=== PATIENT | female | born 1960 | race Caucasian/White ===

== ENCOUNTER → 2016-09-21 | Outpatient (CLI) | payer OTHER ==
--- NOTE | 2016-09-21 15:56 | DIAGNOSTIC IMAGING REPORT ---
CERVICAL SPINE 2 OR 3 VIEWS CLINICAL HISTORY: Neck pain. COMPARISON STUDY: No previous studies for comparison. FINDINGS: Visualization of the cervical spine is adequate. Vertebral body heights are maintained. There is mild to moderate disc space narrowing at C5-C6 and C6-C7 with mild multilevel facet arthrosis. IMPRESSION: 1. No cervical spine fracture. 2. Mild to moderate degenerative disc disease at C5-C6 and C6-C7 with moderate multilevel facet arthrosis. Electronically signed by: Augustine Garcia M.D. 09/21/2016 3:54 PM Dictated Date/Time: 09/21/2016 3:53 PM
[2016-09-22 06:46] LABS: ESTIMATED AVERAGE GLUCOSE 103 mg/dl; HA1C FLAG Normal (Normal)
== END | disposition home or self-care (01) ==
LOC: C.LABBC 15:05
PROVIDERS: ATTEND Family Medicine
DX: M50.322 Other cervical disc degeneration at C5-C6 level (principal); M50.323 Other cervical disc degeneration at C6-C7 level; M85.80 Other specified disorders of bone density and structure, unspecified site; R73.01 Impaired fasting glucose; E03.9 Hypothyroidism, unspecified

== ENCOUNTER → 2016-09-21 | Outpatient (CLI) | payer OTHER | END | disposition home or self-care (01) | LOC: C.PAPS 09:46 | PROVIDERS: ATTEND Family Medicine | DX: Z12.4 Encounter for screening for malignant neoplasm of cervix (principal) ==

== ENCOUNTER → 2016-09-30 | Outpatient (CLI) | payer OTHER ==
[2016-09-30 20:16] LABS: INFLUENZA A PCR Neg for Influ A (NEG); INFLUENZA B PCR Neg for Influ B (NEG)
== END | disposition home or self-care (01) ==
LOC: C.LAB 17:33
PROVIDERS: ATTEND Family Medicine
DX: R09.89 Other specified symptoms and signs involving the circulatory and respiratory systems (principal); Z11.59 Encounter for screening for other viral diseases

== ENCOUNTER → 2016-09-30 | Outpatient (CLI) | payer OTHER ==
--- NOTE | 2016-09-30 16:46 | DIAGNOSTIC IMAGING REPORT ---
CHEST 2 VIEWS ROUTINE CLINICAL HISTORY: Persistent cough and congestion COMPARISON STUDY: No previous studies for comparison. FINDINGS: The cardiac and mediastinal contours are normal. There is no evidence of focal pulmonary consolidation. There is no evidence of failure. No pleural effusions are visualized.[ IMPRESSION: No active disease in the chest. Electronically signed by: Jus Benitez M.D. 09/30/2016 4:45 PM Dictated Date/Time: 09/30/2016 4:45 PM
== END | disposition home or self-care (01) ==
LOC: C.RADBC 16:33
PROVIDERS: ATTEND Family Medicine
DX: R09.89 Other specified symptoms and signs involving the circulatory and respiratory systems (principal)

== ENCOUNTER → 2017-02-22 | Outpatient (CLI) | payer OTHER ==
[2017-02-22 14:48] LABS: ALT/SGPT 20 U/L (12-78); BLOOD UREA NITROGEN 20 mg/dl (7-18); BUN/CREATININE RATIO 21.7 (10-20); CARBON DIOXIDE 29 mmol/L (21-32); CHLORIDE 105 mmol/L (98-107); CREATININE 0.93 mg/dl (0.60-1.20); GLUCOSE 66 mg/dl (70-99); POTASSIUM 4.2 mmol/L (3.5-5.1); SODIUM 141 mmol/L (136-145)
[2017-02-22 14:58] LABS: ALB/GLOB RATIO 1.1 (0.9-2); ALKALINE PHOSPHATASE 53 U/L (45-117); AST/SGOT 19 U/L (15-37); THYROID STIMULATING HORMONE 0.168 uIu/ml (0.300-4.500)
== END | disposition home or self-care (01) ==
LOC: C.LABBC 09:35
PROVIDERS: ATTEND Family Medicine
DX: E55.9 Vitamin D deficiency, unspecified (principal); E03.9 Hypothyroidism, unspecified; M85.80 Other specified disorders of bone density and structure, unspecified site

== ENCOUNTER → 2017-03-15 | Outpatient (CLI) | payer OTHER ==
--- NOTE | 2017-03-15 14:42 | DIAGNOSTIC IMAGING REPORT ---
CERVICAL SPINE 2 OR 3 VIEWS CLINICAL HISTORY: 56 years-old Female presenting with trapezius muscle spasm, whiplash injury. TECHNIQUE: Frontal, lateral, and open-mouth odontoid views of the cervical spine were obtained. COMPARISON: None. FINDINGS: The C7 vertebral body is fully visualized. Vertebral bodies maintain normal height and alignment. Minimal multilevel degenerative changes with suggestion of suggestion of minimal intervertebral disc height loss as a result. 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 No predental interval widening. The lateral masses of C1 articulate normally with C2. Prevertebral soft tissues normal. No radiographic evidence of fracture or subluxation. Lung apices clear. IMPRESSION: 1. No radiographic evidence of acute fracture or subluxation. Electronically signed by: Nicholas Bashir M.D. 03/15/2017 2:41 PM Dictated Date/Time: 03/15/2017 2:37 PM
== END | disposition home or self-care (01) ==
LOC: C.RADBC 14:14
PROVIDERS: ATTEND Physician Assistant Medical
DX: M62.838 Other muscle spasm (principal); S13.4XXA Sprain of ligaments of cervical spine, initial encounter; X58.XXXA Exposure to other specified factors, initial encounter

== ENCOUNTER → 2017-03-25 | Outpatient (CLI) | payer OTHER | END | disposition home or self-care (01) | LOC: C.LABBC 12:53 | PROVIDERS: ATTEND Internal Medicine | DX: E03.9 Hypothyroidism, unspecified (principal) ==

== ENCOUNTER → 2017-04-29 | Outpatient (CLI) | payer OTHER | END | disposition home or self-care (01) | LOC: C.LABBC 11:26 | PROVIDERS: ATTEND Physician Assistant Medical | DX: E03.9 Hypothyroidism, unspecified (principal) ==

== ENCOUNTER → 2017-10-12 | Outpatient (CLI) | payer OTHER | END | disposition home or self-care (01) | LOC: C.LABSPEC 17:30 | PROVIDERS: ATTEND Physician Assistant | DX: Z01.419 Encounter for gynecological examination (general) (routine) without abnormal findings (principal); R10.2 Pelvic and perineal pain ==

== ENCOUNTER → 2017-12-14 | Outpatient (CLI) | payer OTHER ==
--- NOTE | 2017-12-14 10:56 | DIAGNOSTIC IMAGING REPORT ---
R HAND MIN 3 VIEWS ROUTINE, L HAND MIN 3 VIEWS ROUTINE CLINICAL HISTORY: BILATERAL HAND PAIN COMPARISON STUDY: None. FINDINGS: No fracture or dislocation within the right or left hand. Soft tissues are unremarkable. No erosions identified. Bone mineralization is intact. Moderate to severe cartilage space narrowing within the DIP joints of the bilateral hands with small marginal osteophytes. This is most pronounced within the index fingers. There is also moderate right and mild left osteoarthritis within the first carpometacarpal joints and interphalangeal joints of the thumbs. IMPRESSION: 1. Bilateral hand osteoarthritis as described above, right greater than left. 2. No fractures. Electronically signed by: Stone Walker M.D. 12/14/2017 10:55 AM Dictated Date/Time: 12/14/2017 10:53 AM
== END | disposition home or self-care (01) ==
LOC: C.RADBC 10:27
PROVIDERS: ATTEND Family Medicine Adult Medicine
DX: M19.041 Primary osteoarthritis, right hand (principal); M19.042 Primary osteoarthritis, left hand

== ENCOUNTER → 2018-01-06 | Outpatient (CLI) | payer OTHER ==
--- NOTE | 2018-01-07 07:49 | MAMMOGRAPHY REPORT ---
BILATERAL DIGITAL SCREENING MAMMOGRAM TOMOSYNTHESIS WITH CAD: 01/06/2018 CLINICAL HISTORY: Routine screening. TECHNIQUE: Breast tomosynthesis in addition to standard 2D mammography was performed. Current study was also evaluated with a Computer Aided Detection (CAD) system. COMPARISON: Comparison is made to exams dated: 12/31/2016 mammogram, 11/28/2015 mammogram, 11/22/2015 ma mmogram, 11/19/2014 mammogram, 11/17/2013 mammogram, and 11/14/2012 mammogram - [facility] nter. BREAST COMPOSITION: The tissue of both breasts is heterogeneously dense, which may obscure small mas ses. FINDINGS: No suspicious masses, calcifications, or areas of architectural distortion are noted in ei ther breast. There has been no significant interval change compared to prior exams. Bilateral benig n-appearing calcifications are not significantly changed. A biopsy marker clip is again noted in the left upper outer quadrant. IMPRESSION: ACR BI-RADS CATEGORY 2: BENIGN There is no mammographic evidence of malignancy. A 1 year screening mammogram is recommended. The pa tient will receive written notification of the results. Approximately 10% of breast cancers are not detected with mammography. A negative mammographic report should not delay biopsy if a clinically suggestive mass is present. Fidelina Francis M.D. ah/:01/06/2018 15:17:17 [employer]ware [employer]sembler: Gege CARCAMO)(Kateryna), [facility] letter sent: Normal 1/2 BI-RADS Code: ACR BI-RADS Category 2: Benign
== END | disposition home or self-care (01) ==
LOC: C.MAMM 12:44
PROVIDERS: ATTEND Internal Medicine
DX: Z12.31 Encounter for screening mammogram for malignant neoplasm of breast (principal)

== ENCOUNTER → 2018-04-14 | Outpatient (CLI) | payer OTHER ==
--- NOTE | 2018-04-14 11:41 | DIAGNOSTIC IMAGING REPORT ---
GI SERIES W/AIR ROUTINE CLINICAL HISTORY: R13.12 Dysphagia with solids and liquids. Coughing while eating., oropharyngeal phase04/14/18 @ [facility], arrive at 1 COMPARISON STUDY: None. FLUOROSCOPY TIME: 2.4 minutes.. FINDINGS: 18 fluoroscopic spot images were obtained. The esophagus is normal in course, caliber, motility. No hiatus hernia. No gastroesophageal reflux demonstrated during the examination. No gastric ulcerations. The duodenal bulb and duodenal C sweep are within normal limits. IMPRESSION: Normal upper GI series. Electronically signed by: Stone Walker M.D. 04/14/2018 11:39 AM Dictated Date/Time: 04/14/2018 11:38 AM
--- NOTE | 2018-04-14 12:21 | DIAGNOSTIC IMAGING REPORT ---
VIDEO SWALLOW CLINICAL HISTORY: 57 years-old Female presenting with R13.12 Dysphagia, oropharyngeal phase04/14/18 @ [facility], will be don. TECHNIQUE: Video fluoroscopic evaluation of swallowing was performed in the AP and lateral projections in conjunction with speech pathology. The patient was administered various textures, including nectar-thick and thin liquid barium, a barium coated wafer, and barium pudding. COMPARISON: Upper GI from earlier today. FINDINGS: There is normal hyoid excursion and epiglottic deflection. No significant penetration or aspiration identified. Swallowing function is within normal limits. Fluoroscopy dosage (mGy): Not available. Fluoroscopy time: 1.4 minutes. Number or time of fluoroscopic spot images: 0. IMPRESSION: 1. No aspiration identified. 2. Please see the speech pathologist report for detailed findings and recommendations. Electronically signed by: Nicholas Bashir M.D. 04/14/2018 12:20 PM Dictated Date/Time: 04/14/2018 12:17 PM
--- NOTE | 2018-04-14 15:19 | SWALLOWING EVALUATION ---
REFERRING SPEECH PATHOLOGIST: n/a HISTORY: This 57 year-old female was referred for a VFSS at [facility] in order to address c/o increased coughing with oral intake and increased feelings of globus sensation. The patient has a PMH significant for thyroidectomy >25 years ago. She denied having any radiation therapy to the neck or throat. Currently the patient's diet level is regular. PROCEDURE: The patient was seen in the Radiology Department of [facility] for the VFSS. Cursory examination of the oral cavity revealed adequate dentition. Movement of the articulators was WNL. Given the patient's complaints of coughing and tickling in the throat and h/o thyroidectomy, I asked for permission to palpate her neck. It should be noted that the patient's neck was significantly more stiff/firm on the right vs. the left side. The patient was seated on a stool and was viewed in both the Anterior-Posterior (A-P) and Lateral planes. Volitional phonation exercises completed in the A-P plane revealed bilateral vocal fold movement and vocal intensity within functional limits. In the lateral plane, the patient was given the following boluses: 1 tsp. thin liquid barium x 2, single swallow thin liquid barium self-presented from a cup, sequential swallows of thin liquid barium self-presented from a cup, 1 tsp. nectar-thick liquid barium, single swallow nectar-thick liquid barium self-presented from a cup, 1 tsp. barium pudding, and 1 club cracker with barium pudding. The patient was then repositioned into the A-P plane and a brief scan of the esophagus was completed. RESULTS: Oral Stage: Labial seal, lingual control to hold thin liquid between tongue and palate, mastication, lingual movement for bolus transfer were all complete/WNL. There was ~ 1/2 pudding bolus left intraorally after initial swallow of the bolus, but it was cleared easily with a second swallow. Pharyngeal swallow initiation occurred when the bolus head was in the valleculae. Oral stage of swallow was functionally WNL. Pharyngeal Stage: Velar elevation complete. Laryngeal elevation, anterior hyoid excursion, epiglottic inversion, laryngeal vestibular closure, pharyngeal stripping wave, distention and duration of PES opening, pharyngeal clearance and tongue base retraction were all WNL. There was no penetration or aspiration during this study. Pharyngeal stage of swallow is WNL. Esophageal Stage: No residual in the esophagus upon scanning. SUMMARY/RECOMMENDATIONS: This patient presents with normal oral-pharyngeal swallowing. The following is recommended: 1. Regular diet as tolerated; consider avoiding icy cold beverages at meal times if they trigger a cough response 2. Consideration of f/u with otolaryngology to r/o LPR. 3. Consideration of f/u re: R>L neck firmness A summary of the results and recommendations was discussed with the patient immediately following the study. She is anticipating f/u with the referring physician. Thank you for referral of this patient. Please contact me at if any additional information is needed.
== END | disposition home or self-care (01) ==
LOC: C.RAD 10:58
PROVIDERS: ATTEND Internal Medicine
DX: R13.12 Dysphagia, oropharyngeal phase (principal)

== ENCOUNTER → 2018-04-20 | Outpatient (CLI) | payer OTHER | END | disposition home or self-care (01) | LOC: C.LABBC 14:14 | PROVIDERS: ATTEND Internal Medicine | DX: E03.9 Hypothyroidism, unspecified (principal) ==